=== PATIENT | female | born 1985 | race African-American/Black ===

== ENCOUNTER 2016-07-08 11:09 | Emergency (ER) | payer OTHER ==
[~2016-07-08] VITALS: Ht 167.6 cm; Wt 124.7 kg
[~2016-07-08 11:09] MED LIST: APAP500 PO; AVELOX400 MG PO; BENTYL20 MG PO; BLOOD PRESSURE MED; CLINDAMYCIN HC150 MG OR; DERMOPLAST SPRA56 ML TOP; FERROUS SULFAT134 M1 PO; GLUCOPHAGE500 MG PO; HYDROCHLOROTHIA25 M1; HYDROCHLOROTHIA50 MG PO; HYDROCODONE-AC120 ML PO; HYDROCORTISONE30 G9 TOP; IBUPROFEN 800800 M1 PO; LANOLIN56 GM TOP; LISINOPRIL; MACROBID 100 M100 M1 PO; NIFEDICAL XL30 MG PO; NORVASC 5 MG TAB5 MG PO; OMEPRAZOLE 20 M20 M1; POTASSIUM20; PRENATAL VITAM1 EACH; PROGESTERONE200 MG PO; PROTONIX40 MG PO; RANITIDINE 150150 M1; TRAMADOL 50 MG50 MG PO; TRANDATE 200 M200 MG PO; TUCKS1 EAC1 TOP; VITAMIN D400 UNI1; YASMIN 28 TABL1 EACH PO; ZESTRIL5 MG; ZOFRAN ODT4 MG PO; ZOFRAN4 MG PO
[2016-07-08 11:26] LABS: URINE BILIRUBIN NEGATIVE (Negative); URINE BLOOD NEGATIVE (Negative); URINE COLOR YELLOW; URINE GLUCOSE-RANDOM* NEGATIVE (Negative); URINE KETONES NEGATIVE (Negative); URINE NITRITE NEGATIVE (Negative); URINE PROTEIN (DIPSTICK) NEGATIVE (Negative); URINE SPECIFIC GRAVITY 1.015 (1.003-1.035)
[2016-07-08] MEDS ORDERED: LABETALOL HCL100 MG PO (11:26)
[2016-07-08 11:59] LABS: ABSOLUTE NEUTROPHILS 7.1 thou/uL (1.4-8.2); BASOPHILS 0.8 % (0.0-2.0); EOSINOPHILS 0.8 % (0.0-3.0); HEMATOCRIT 36.2 % (37.0-47.0); HEMOGLOBIN 12.7 gm/dL (12.0-15.0); LYMPHOCYTES 28.9 % (24.0-44.0); MCH 30.6 pg (26.0-34.0); MCHC 35.1 % (28.0-37.0); MCV 87.2 fL (80.0-100.0); MONOCYTES 3.9 % (1.0-8.0); PLATELET COUNT 210 thou/uL (150-400); POLYS 65.6 % (36.0-66.0); RBC 4.15 mil/uL (4.20-5.00); RDW 13.1 % (10.5-14.5); WBC 10.9 thou/uL (4.0-11.0)
[2016-07-08 12:01] LABS: MANUAL DIFF NO
[2016-07-08 12:09] LABS: CALCIUM 9.1 mg/dL (8.5-10.1); CREATININE 0.7 mg/dL (0.6-1.3); POTASSIUM 3.8 mmol/L (3.5-5.1)
[2016-07-08 12:59] VITALS: BP 145/85
[2016-07-09 14:12] LABS: CHLAMYDIA TRACHOMATIS-PCR Negative (Negative); NEISSERIA GONORRHEA-PCR Negative (Negative)
== END 2016-07-08 13:02 | disposition home or self-care (01) ==
LOC: ER 11:09
PROVIDERS: Physician Assistant
DX: O26.891 Other specified pregnancy related conditions, first trimester (principal); O16.1 Unspecified maternal hypertension, first trimester; O99.611 Diseases of the digestive system complicating pregnancy, first trimester; Z3A.12 12 weeks gestation of pregnancy; K21.9 Gastro-esophageal reflux disease without esophagitis; Z87.891 Personal history of nicotine dependence